=== PATIENT | male | born 1960 | race Caucasian/White ===

== ENCOUNTER 2020-10-14 13:49 | Inpatient (IN) ==
[2020-10-14] MEDS ORDERED: Thiamine (B-1) 200 MG in 0.9 % Sodium Chloride 50 ML IVPB ONE (14:21)
[2020-10-14] MEDS ORDERED: Folic Acid 1 MG in 0.9 % Sodium Chloride 50 ML IVPB ONE (14:21)
[2020-10-14 15:07] LABS: Basophils # 0.1 K/mcL (0.0-0.2); Basophils % 1.1 %; Eosinophils % 0.4 %; Hemoglobin 9.8 g/dL (12.9-16.9); Immature Granulocytes % 0.7 % (0-4); Lymphocytes # 2.3 K/mcL (0.6-4.6); Lymphocytes % 25.4 %; Mean Corpuscular HGB Conc 29.7 g/dL (31.6-35.5); Mean Corpuscular Hemoglobin 23.3 pg (28.0-33.3); Mean Corpuscular Volume 78.4 fL (83.0-100.0); Mean Platelet Volume 10.9 fL (9.4-12.4); Monocytes % 23.5 %; Neutrophils # 4.5 K/mcL (1.6-8.9); Nucleated Red Blood Cells 0.4 /100 WBC (0); Platelet Count 156 K/mcL (140-400); Red Blood Count 4.21 M/mcL (4.19-5.50); Red Cell Distribution Width 21.4 % (11.5-14.5); Segmented Neutrophils % 48.9 %; White Blood Count 9.1 K/mcL (4.3-11.1)
[2020-10-14 15:09] LABS: Monocytes # 2.1 K/mcL (0.0-1.3)
[2020-10-14 15:14] LABS: INR 1.3; Prothrombin Time 15.4 Seconds (9.4-12.1)
[2020-10-14 15:32] LABS: Alanine Aminotransferase 67 Units/L (7-52); Albumin 3.7 g/dL (3.5-5.7); Albumin/Globulin Ratio 0.9 (1.1-2.2); Alkaline Phosphatase 109 Units/L (34-104); Aspartate Amino Transferase 166 Units/L (13-39); BUN/Creatinine Ratio 16 (6-26); Bilirubin,Direct 0.5 mg/dL (0.0-0.2); Bilirubin,Total 1.5 mg/dL (0.3-1.0); Blood Urea Nitrogen 7 mg/dL (6-20); Calcium 8.6 mg/dL (8.6-10.3); Carbon Dioxide 21 mEq/L (23-29); Chloride 100 mEq/L (98-107); Ethanol < 10 mg/dL (Less than 10); Globulin 4.3 g/dL (2.4-3.5); Glucose 91 mg/dL (70-105); Osmolality,Calculated 276 (280-300); Potassium 3.3 mEq/L (3.5-5.1); Sodium 134 mEq/L (136-145); eGFR For African Americans > 60 (> 60); eGFR For Non-African Americans > 60 (> 60)
[2020-10-14 15:40] LABS: Troponin I < 0.03 ng/mL (< 0.04)
[2020-10-14 17:05] LABS: Bilirubin,Urine Negative (Negative); Blood,Urine Negative (Negative); Clarity,Urine Clear (Clear); Color,Urine Light-Yellow (Yellow); Glucose,Urine (UA) Normal (Normal); Ketones,Urine 20 mg/dL (Negative); Leukocyte Esterase,Urine Negative (Negative); Nitrite,Urine Negative (Negative); Protein,Urine Negative (Neg-Trace); Specific Gravity,Urine 1.012 (1.010-1.025); Urobilinogen,Urine Normal (Normal)
[2020-10-14 17:11] LABS: Amphetamine Screen,Urine Negative ng/mL (Cutoff=1000); Barbiturate Screen,Urine Negative ng/mL (Cutoff=200); Benzodiazepines Screen,Urine Negative ng/mL (Cutoff=200); Cannabinoid Screen,Urine Negative ng/mL (Cutoff = 50); Cocaine Screen,Urine Negative ng/mL (Cutoff= 300); Opiate Screen,Urine Negative ng/mL (Cutoff=300); Phencyclidine Screen,Urine Negative ng/mL (Cutoff=25)
[2020-10-14] MEDS ORDERED: cefTRIAXone 1,000 MG in Water for inj. (sterile) 10 ML IVP ONE (17:38)
[2020-10-14] MEDS ORDERED: Azithromycin 500 MG in D5% in Water 250 ML IVPB ONE (17:38)
[2020-10-14] MEDS ORDERED: Ondansetron 4 MG/2 ML VIAL IVP PRN (18:04)
[2020-10-14] MEDS ORDERED: *HR* LORazepam 2 MG/ML VIAL IVP PRN ×3 (18:04→18:07)
[2020-10-14] MEDS ORDERED: Naloxone 0.4 MG/ML INJ IVP PRN (18:04)
[2020-10-14] MEDS ORDERED: Potassium Chloride 40 MEQ in D5% in 0.45% NACL 1,000 ML IVC SCH (18:30)
[2020-10-14 20:20] LABS: Albumin 3.5 g/dL (3.5-5.7); Albumin/Globulin Ratio 0.8 (1.1-2.2); Bilirubin,Direct 0.3 mg/dL (0.0-0.2); Bilirubin,Total 1.3 mg/dL (0.3-1.0); Globulin 4.4 g/dL (2.4-3.5); Total Protein 7.9 g/dL (6.4-8.9)
[2020-10-14] MEDS: *HR* LORazepam 2 MG/ML VIAL IVP PRN (21:06)
[2020-10-15] MEDS: *HR* LORazepam 2 MG/ML VIAL IVP PRN ×3 (01:06→23:07)
[2020-10-15] MEDS: Ampicillin/Sulbactam 1,500 MG in 0.9 % Sodium Chloride Mini Bag 100 ML IVPB SCH ×5 (01:14→23:08)
[2020-10-15 05:27] LABS: Basophils # 0.1 K/mcL (0.0-0.2); Basophils % 1.5 %; Eosinophils # 0.2 K/mcL (0.0-0.6); Eosinophils % 2.1 %; Hematocrit 32.8 % (37.5-50.1); Hemoglobin 9.9 g/dL (12.9-16.9); Immature Granulocytes % 0.5 % (0-4); Lymphocytes # 2.4 K/mcL (0.6-4.6); Lymphocytes % 27.2 %; Mean Corpuscular HGB Conc 30.2 g/dL (31.6-35.5); Mean Corpuscular Hemoglobin 23.7 pg (28.0-33.3); Mean Corpuscular Volume 78.5 fL (83.0-100.0); Mean Platelet Volume 10.8 fL (9.4-12.4); Monocytes # 2.2 K/mcL (0.0-1.3); Monocytes % 25.4 %; Neutrophils # 3.8 K/mcL (1.6-8.9); Nucleated Red Blood Cells 0.3 /100 WBC (0); Platelet Count 159 K/mcL (140-400); Red Blood Count 4.18 M/mcL (4.19-5.50); Segmented Neutrophils % 43.3 %; White Blood Count 8.8 K/mcL (4.3-11.1)
[2020-10-15 05:45] LABS: BUN/Creatinine Ratio 13 (6-26); Blood Urea Nitrogen 6 mg/dL (6-20); Calcium 8.5 mg/dL (8.6-10.3); Carbon Dioxide 24 mEq/L (23-29); Chloride 99 mEq/L (98-107); Glucose 96 mg/dL (70-105); Osmolality,Calculated 271 (280-300); Potassium 3.3 mEq/L (3.5-5.1); Sodium 132 mEq/L (136-145); eGFR For African Americans > 60 (> 60); eGFR For Non-African Americans > 60 (> 60)
[2020-10-15 05:52] LABS: Platelet Estimate Normal (Normal); Reactive Lymphocytes Present (Not Present)
[2020-10-15] MEDS ORDERED: Potassium Chloride Elixir 20 MEQ/15 ML UDC PO ONE (07:14)
[2020-10-15] MEDS: Vitamin B Complex/Vit C/Vit E 1 EACH TABLET PO SCH (09:18)
[2020-10-15] MEDS: Folic Acid 1 MG TABLET PO SCH (09:18)
[2020-10-15] MEDS ORDERED: levETIRAcetam 250 MG TABLET PO ONE (14:00)
[2020-10-15] MEDS: *HR* Heparin 5,000 UNIT/ML VIAL SQ SCH (18:22)
[2020-10-16 01:35] LABS: Hematocrit 33.3 % (37.5-50.1); Hemoglobin 9.9 g/dL (12.9-16.9); Mean Corpuscular HGB Conc 29.7 g/dL (31.6-35.5); Mean Corpuscular Hemoglobin 23.6 pg (28.0-33.3); Mean Corpuscular Volume 79.3 fL (83.0-100.0); Mean Platelet Volume 11.5 fL (9.4-12.4); Platelet Count 167 K/mcL (140-400); Red Cell Distribution Width 21.1 % (11.5-14.5); White Blood Count 8.2 K/mcL (4.3-11.1)
[2020-10-16 01:58] LABS: Alanine Aminotransferase 45 Units/L (7-52); Albumin 3.3 g/dL (3.5-5.7); Albumin/Globulin Ratio 0.8 (1.1-2.2); Alkaline Phosphatase 116 Units/L (34-104); Aspartate Amino Transferase 104 Units/L (13-39); BUN/Creatinine Ratio 17 (6-26); Bilirubin,Total 0.9 mg/dL (0.3-1.0); Blood Urea Nitrogen 9 mg/dL (6-20); Calcium 8.7 mg/dL (8.6-10.3); Carbon Dioxide 22 mEq/L (23-29); Chloride 102 mEq/L (98-107); Glucose 108 mg/dL (70-105); Osmolality,Calculated 273 (280-300); Potassium 4.1 mEq/L (3.5-5.1); Sodium 132 mEq/L (136-145); Total Protein 7.3 g/dL (6.4-8.9); eGFR For African Americans > 60 (> 60); eGFR For Non-African Americans > 60 (> 60)
[2020-10-16] MEDS: *HR* Heparin 5,000 UNIT/ML VIAL SQ SCH ×2 (05:45→18:41)
[2020-10-16] MEDS: Ampicillin/Sulbactam 1,500 MG in 0.9 % Sodium Chloride Mini Bag 100 ML IVPB SCH ×4 (05:45→23:08)
[2020-10-16] MEDS: Folic Acid 1 MG TABLET PO SCH (09:00)
[2020-10-16] MEDS: Vitamin B Complex/Vit C/Vit E 1 EACH TABLET PO SCH (09:00)
[2020-10-16] MEDS: Multivit/Ca/Min/Fe/FA 1 TAB TABLET PO SCH (09:00)
[2020-10-16] MEDS: levETIRAcetam 250 MG TABLET PO SCH ×2 (09:00→20:35)
[2020-10-16] MEDS: *HR* HYDROcodone/Acet 5/325 mg TABLET PO PRN (16:33)
[2020-10-16] MEDS: *HR* LORazepam 2 MG/ML VIAL IVP PRN ×2 (18:46→23:07)
[2020-10-17] MEDS: *HR* HYDROcodone/Acet 5/325 mg TABLET PO PRN ×2 (01:05→17:39)
[2020-10-17] MEDS: *HR* Heparin 5,000 UNIT/ML VIAL SQ SCH ×2 (05:34→17:39)
[2020-10-17] MEDS: Ampicillin/Sulbactam 1,500 MG in 0.9 % Sodium Chloride Mini Bag 100 ML IVPB SCH ×2 (05:34→12:12)
[2020-10-17] MEDS: levETIRAcetam 250 MG TABLET PO SCH ×2 (07:46→19:38)
[2020-10-17] MEDS: Vitamin B Complex/Vit C/Vit E 1 EACH TABLET PO SCH (07:46)
[2020-10-17] MEDS: Folic Acid 1 MG TABLET PO SCH (07:46)
[2020-10-17] MEDS: Multivit/Ca/Min/Fe/FA 1 TAB TABLET PO SCH (07:46)
[2020-10-17] MEDS ORDERED: Chloraseptic Spray 177 ML BOTTLE MM PRN (07:53)
[2020-10-17] MEDS ORDERED: Orphenadrine 60 MG/2 ML VIAL IVP PRN (10:16)
[2020-10-18 03:03] LABS: Hematocrit 34.1 % (37.5-50.1); Hemoglobin 10.3 g/dL (12.9-16.9); Mean Corpuscular HGB Conc 30.2 g/dL (31.6-35.5); Mean Corpuscular Hemoglobin 23.7 pg (28.0-33.3); Mean Corpuscular Volume 78.4 fL (83.0-100.0); Mean Platelet Volume 11.1 fL (9.4-12.4); Platelet Count 244 K/mcL (140-400); Red Blood Count 4.35 M/mcL (4.19-5.50); Red Cell Distribution Width 20.9 % (11.5-14.5); White Blood Count 9.8 K/mcL (4.3-11.1)
[2020-10-18 03:22] LABS: BUN/Creatinine Ratio 15 (6-26); Blood Urea Nitrogen 8 mg/dL (6-20); Calcium 8.6 mg/dL (8.6-10.3); Carbon Dioxide 22 mEq/L (23-29); Chloride 103 mEq/L (98-107); Glucose 110 mg/dL (70-105); Magnesium 1.9 mg/dL (1.6-2.6); Osmolality,Calculated 275 (280-300); Potassium 4.7 mEq/L (3.5-5.1); Sodium 133 mEq/L (136-145); eGFR For African Americans > 60 (> 60); eGFR For Non-African Americans > 60 (> 60)
[2020-10-18] MEDS: *HR* Heparin 5,000 UNIT/ML VIAL SQ SCH ×2 (05:05→15:48)
[2020-10-18] MEDS: Vitamin B Complex/Vit C/Vit E 1 EACH TABLET PO SCH (07:32)
[2020-10-18] MEDS: Multivit/Ca/Min/Fe/FA 1 TAB TABLET PO SCH (07:32)
[2020-10-18] MEDS: Folic Acid 1 MG TABLET PO SCH (07:32)
[2020-10-18] MEDS: levETIRAcetam 250 MG TABLET PO SCH ×2 (07:35→19:39)
[2020-10-18] MEDS: *HR* HYDROcodone/Acet 5/325 mg TABLET PO PRN (15:48)
[2020-10-19] MEDS: *HR* Heparin 5,000 UNIT/ML VIAL SQ SCH (05:32)
[2020-10-19 05:39] LABS: Hematocrit 33.8 % (37.5-50.1); Hemoglobin 10.2 g/dL (12.9-16.9); Mean Corpuscular HGB Conc 30.2 g/dL (31.6-35.5); Mean Corpuscular Hemoglobin 23.8 pg (28.0-33.3); Mean Corpuscular Volume 78.8 fL (83.0-100.0); Mean Platelet Volume 10.3 fL (9.4-12.4); Platelet Count 300 K/mcL (140-400); Red Blood Count 4.29 M/mcL (4.19-5.50); Red Cell Distribution Width 20.7 % (11.5-14.5); White Blood Count 11.7 K/mcL (4.3-11.1)
[2020-10-19 06:06] LABS: Alanine Aminotransferase 36 Units/L (7-52); Albumin 3.4 g/dL (3.5-5.7); Albumin/Globulin Ratio 0.9 (1.1-2.2); Alkaline Phosphatase 114 Units/L (34-104); Aspartate Amino Transferase 80 Units/L (13-39); BUN/Creatinine Ratio 19 (6-26); Bilirubin,Total 0.8 mg/dL (0.3-1.0); Blood Urea Nitrogen 11 mg/dL (6-20); Calcium 8.6 mg/dL (8.6-10.3); Carbon Dioxide 22 mEq/L (23-29); Chloride 105 mEq/L (98-107); Glucose 106 mg/dL (70-105); Osmolality,Calculated 278 (280-300); Potassium 3.7 mEq/L (3.5-5.1); Sodium 134 mEq/L (136-145); Total Protein 7.4 g/dL (6.4-8.9); eGFR For African Americans > 60 (> 60); eGFR For Non-African Americans > 60 (> 60)
[2020-10-19] MEDS: Multivit/Ca/Min/Fe/FA 1 TAB TABLET PO SCH (07:47)
[2020-10-19] MEDS: Vitamin B Complex/Vit C/Vit E 1 EACH TABLET PO SCH (07:47)
[2020-10-19] MEDS: levETIRAcetam 250 MG TABLET PO SCH (07:47)
[2020-10-19] MEDS: Folic Acid 1 MG TABLET PO SCH (07:47)
[2020-10-19 07:52] VITALS: BP 111/69
== END 2020-10-19 12:52 | disposition home or self-care (01) | DRG 896 ==
LOC: EMEROOARM 13:49 → 2ANU 13:49 → SUATTDRO 10-16 16:28
PROVIDERS: ADMIT Internal Medicine; ATTEND Internal Medicine